=== PATIENT | female | born 1955 | race Caucasian/White ===

== ENCOUNTER 2017-03-18 08:55 | Emergency (ER) | payer MEDICAID ==
[2017-03-18 09:02] VITALS: BP 132/91; PULSE 69; RESP 16; TEMP 98.1; O2SAT 96
--- NOTE | 2017-03-18 09:27 | EDPHY ---
H & P Stated Complaint: SUBCONJUNCTIVAL HEMMORRHAGE LEFT EYE Time Seen by Provider: 03/18/17 09:14 HPI/ROS: CHIEF COMPLAINT: Left eye redness HISTORY OF PRESENT ILLNESS: This is a generally healthy 61-year-old female who presents concerned about left eye redness. She was unaware of this until her son commented on it. She has had no trauma. She denies change in vision, headache, recent illness such as upper respiratory infection. She does not have a foreign body sensation. There is no drainage from the eye. She is not having eye pain. REVIEW OF SYSTEMS: A ten point review of systems was performed and is negative with the exception of the items mentioned in the HPI. 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 - Physical Exam Exam: General Appearance: Alert. Vital signs reviewed. Blood pressure 132/91. Eyes: Visual Acuity: noted from Nurse's notes. Pupils:equal round and reactive to light EOMI Lids: no edema or swelling Skin: no proptosis, no periorbital erythema or swelling, no vesicles Conjunctivae: subconjunctival hemorrhage OS, no discharge Cornea: Fluorescein exam not performed. Slit lamp: Normal. ENT, Mouth: Normal tympanic membranes and external auditory canals. Mucous membranes are moist, no oropharyngeal erythema or edema. Neck: No lymphadenopathy. Respiratory: Lungs are clear to auscultation; no wheezes, rales, or rhonchi. Cardiovascular: Regular rate and rhythm; no murmur, rub, or gallop. Skin: Warm and dry, no rashes on exposed skin, normal color.. Neurological: Alert and oriented. Moving all four extremities easily and equally. ADAM. EOMI. Facial expression symmetric. Tongue midline. Facial sensation intact to light touch. Psychiatric: Normal affect. Constitutional: Initial Vital Signs Temperature (C) 36.7 C 03/18/17 08:59 Heart Rate 69 03/18/17 08:59 Respiratory Rate 16 03/18/17 08:59 Blood Pressure 132/91 H 03/18/17 08:59 O2 Sat (%) 96 03/18/17 08:59 Allergies/Adverse Reactions: oxycodone HCl [From Percocet] Allergy (Verified 03/18/17 09:02) Itching Home Medications: Medication Instructions Recorded NK [No Known Home Meds] 03/18/17 Medical Decision Making ED Course/Re-evaluation: 61-year-old female with subconjunctival hemorrhage. No trauma. Nothing to suggest corneal abrasion. She does not have a foreign body sensation. Nothing on exam to suggest conjunctivitis. I do not suspect acute glaucoma. She reports a history of what sounds like high blood pressure. She does have hypertension in the emergency department and will have this followed up with her primary care provider. She is not currently on any antihypertensive medications. Departure - Departure Disposition: Home, Routine, Self-Care Clinical Impression: Subconjunctival hemorrhage of left eye Condition: Good Instructions: Subconjunctival Hemorrhage (ED) Additional Instructions: Your blood pressure was high in the emergency department. It was 132/91. You should have this followed up with your primary care physician within the next month. You should be seen in the emergency department or by an eye doctor immediately if you develop eye pain, change in vision, any new or concerning symptoms. Referrals: [facility] [Other] - As per Instructions
== END 2017-03-18 09:36 | disposition home or self-care (01) ==
LOC: CED 08:55
DX: H11.32 Conjunctival hemorrhage, left eye (principal)

== ENCOUNTER 2017-05-17 18:03 | Emergency (ER) | payer MEDICAID ==
[2017-05-17 18:18] VITALS: RESP 18; TEMP 99; O2SAT 97
--- NOTE | 2017-05-17 18:41 | EDPHY ---
H & P Time Seen by Provider: 05/17/17 18:26 HPI/ROS: This patient complains of toe redness and discomfort to the lateral paronychia region of her left great toe that started after she broke the distal toenail and then tore off the remaining piece. She thinks this door flap given the paronychia region that has caused the infection. Symptoms started over the past 48 hours and she reports moderate pain to the area. There is no bleeding when she removed the remaining toenail. She has never had an issue with this toe before. She notes no exacerbating factors except for partial relief from [id number] analgesics. ROS: No fevers chills or other constitutional symptoms Integumentary: No other skin rash or redness elsewhere. 5 point ROS is otherwise negative Past Medical/Surgical History: Otherwise healthy Smoking Status: Never smoked Physical Exam: Physical Exam Vital signs are normal. General: No acute distress Lungs: No respiratory distress. Cardiac: Brisk capillary refill is intact throughout. Skin: No rash or pallor. Extremities: Atraumatic normal except for left great toe Left great toe: Patient has some mild paronychial erythema and swelling to the lateral aspect of the great toe paronychial region without fluctuance or drainage. No bony tenderness. Neuro: Alert and oriented with no sensorimotor deficits in the affected toe. Constitutional: Initial Vital Signs Temperature (C) 37.2 C 05/17/17 18:16 Heart Rate 87 05/17/17 18:16 Respiratory Rate 18 05/17/17 18:16 Blood Pressure 127/81 H 05/17/17 18:16 O2 Sat (%) 97 05/17/17 18:16 O2 Delivery Mode Room Air Allergies/Adverse Reactions: oxycodone HCl [From Percocet] Allergy (Verified 03/18/17 09:02) Itching Home Medications: Medication Instructions Recorded Cephalexin [Keflex (*)] 500 mg PO TID #21 cap 05/17/17 MDM/Departure - [facility] ED Course/Re-evaluation: This patient has paronychia without fluctuance. I recommended Keflex antibiotic and Epsom salt soaks. She understands need to return if she develops worsening despite the treatment plan - Depart Disposition: Home, Routine, Self-Care Clinical Impression: Paronychia Qualifiers: Laterality: left Qualified Code(s): L03.012 - Cellulitis of left finger Condition: Good Instructions: Paronychia (ED) Additional Instructions: Diagnosis: Paronychia-toe infection Plan: Warm Epsom salt water soaks 2 times a day or soapy water soaks if it appears dry. Keflex antibiotic Ibuprofen and Tylenol Return for any significant worsening despite the treatment plan or follow up with Podiatry for any ongoing symptoms despite the treatment Prescriptions: Cephalexin [Keflex (*)] 500 mg PO TID #21 cap Referrals: NONE *PRIMARY CARE P,. [Primary Care Provider] - As per Instructions Tom Holm DPM [Doctor of Podiatric Medicine] - As per Instructions
[2017-05-17 18:55] VITALS: BP 154/85; PULSE 85
== END 2017-05-17 18:56 | disposition home or self-care (01) ==
LOC: CED 18:03
DX: L03.012 Cellulitis of left finger (principal)

== ENCOUNTER 2017-11-01 17:16 | Emergency (ER) | payer MEDICAID ==
[2017-11-01] MEDS ORDERED: LET GEL TOPICAL 1 EA SYR TP ONE (17:31)
[2017-11-01 17:37] VITALS: BP 149/81; PULSE 88; RESP 16; TEMP 97.9; O2SAT 96
--- NOTE | 2017-11-01 18:32 | EDPHY ---
H & P Time Seen by Provider: 11/01/17 17:30 HPI/ROS: This patient complains of pain to the left foot the site of the puncture wound and possible retained foreign body. She was barefoot in her home while they were working on rebuilding a couch with wood chips on the floor. Also a glass vase broke in the area and she is not sure if she stepped on glass would or both. The family was able to remove some wood splinters from the puncture wound but she has a sense that there may still be something in the wound as she has had slight increase in her pain from 3/10 initially to 5/10 over the past 24 hr. The incident occurred 3 days ago. The pain worsens with walking and no other exacerbating or alleviating factors are noted. ROS: No fevers. No other constitutional symptoms Integumentary: No redness to the area of the wound. No discharge. Cardiovascular: No significant bleeding from the wound. 5 point ROS is otherwise negative. Past Medical/Surgical History: Otherwise healthy with immunizations up today Smoking Status: Former smoker Physical Exam: Physical Exam Vital signs are normal. General: No acute distress Cardiac: Brisk capillary refill is intact throughout. Pulses are 2+ and symmetric in the affected extremity. Extremities: Atraumatic normal except for left foot Left foot: Patient has a 4 mm wound-puncture wound to the mid plantar ft with no active bleeding and small brown foreign body evident relatively near the surface. There is no erythema. No fluctuance. No warmth to touch. No active bleeding. Skin: No rash or pallor. Neuro: Alert with no sensorimotor deficits in the affected extremity. Constitutional: Initial Vital Signs Temperature (C) 36.6 C 11/01/17 17:36 Heart Rate 88 11/01/17 17:36 Respiratory Rate 16 11/01/17 17:36 Blood Pressure 149/81 H 11/01/17 17:36 O2 Sat (%) 96 11/01/17 17:36 O2 Delivery Mode Room Air Allergies/Adverse Reactions: oxycodone HCl [From Percocet] Allergy (Verified 11/01/17 17:34) Itching Home Medications: Medication Instructions Recorded NK [No Known Home Meds] 11/01/17 MDM/Departure - MDM Diagnostics: Two view foot x-ray: Normal by my interpretation. I do not appreciate any radiopaque foreign bodies. Imaging Results: Imaging Impressions Foot X-Ray 11/01/17 17:39 Impression: No foreign body identified. Imaging: I viewed and interpreted images myself Procedures: Foreign body removal: After verbal consent placed patient in the prone position and use chlorhexidine scrub the wound after initial let analgesia with 1% plain lidocaine with epi, 27 gauge needle 1 mL injected with good effect I then used forceps to blunt dissect removed small amount of wood debris from near the entrance of the wound. I was able to obtain good exposure by simply retracting the wound edges with Jeannie forceps while using magnifying loops and using a blunt probe was able to probe the base of the wound appreciate no deeper puncture wound and no other foreign bodies. Patient tolerated this well. There were no complications. Wound was then cleaned again, bacitracin and bandage applied by our tech cording my instructions the patient was then placed and postop shoe by our tech I counseled patient regarding wound care ED Course/Re-evaluation: Our tech placed the patient in a postop shoe after the procedure as per my directions. She remained neurovascularly intact post splint application Discussion: Patient with superficial puncture wound with wood foreign body near the surface removed without evidence of cellulitis currently. I do not appreciate a evidence of deeper foreign bodies or, fracture or other complicating factors in this patient. Will treat her with ibuprofen and Tylenol analgesics and wound care. She understands the need to follow up with the retail salesman for any ongoing symptoms that persist beyond the next 5-7 days and she will return emergency department should she have any worsening of symptoms or development of redness, discharge or other concerns for infection. - Depart Disposition: Home, Routine, Self-Care Clinical Impression: Foreign body in left foot Qualifiers: Encounter type: initial encounter Qualified Code(s): S90.852A - Superficial foreign body, left foot, initial encounter Condition: Good Instructions: Puncture Wound (ED) Additional Instructions: Diagnosis: Foreign body left foot-removed Plan: Clean the wound daily with warm soapy water Wear a bandage during the day and postop shoe until your pain diminishes. Take the bandage off a night so that air can get to your foot. Ibuprofen and Tylenol for pain. Follow up with the retail salesman-email production specialist for any significant ongoing symptoms last beyond the next 5-7 days Return for redness, discharge, fevers or other concerns for infection Referrals: Radha Howard NP [Primary Care Provider] - As per Instructions Arian Schmitt DPM [Doctor of Podiatric Medicine] - As per Instructions
== END 2017-11-01 18:35 | disposition home or self-care (01) ==
LOC: CED 17:16
PROC: 0JCR0ZZ Extirpation of Matter from Left Foot Subcutaneous Tissue and Fascia, Open Approach (ICD-10-PCS; principal; 2017-11-01)
DX: S90.852A Superficial foreign body, left foot, initial encounter (principal); Z87.891 Personal history of nicotine dependence; W25.XXXA Contact with sharp glass, initial encounter
CPT/HCPCS: 73620-PO

== ENCOUNTER 2017-11-07 19:53 | Emergency (ER) | payer MEDICAID ==
[2017-11-07] MEDS ORDERED: OXYMETAZOLINE 30 ML NASAL SPRAY EACHNARE ONE (20:00)
[2017-11-07 20:02] VITALS: RESP 18; TEMP 97.9; O2SAT 95
--- NOTE | 2017-11-07 20:02 | EDPHY ---
H & P Time Seen by Provider: 11/07/17 19:56 HPI/ROS: CHIEF COMPLAINT: Nosebleed HISTORY OF PRESENT ILLNESS: The patient is a 62-year-old female who comes to the emergency department the family complaining of a nosebleed that started 20 min ago. She states it started when she is bending over looking on the couch. She has not had a fever or recent illness. She denies trauma. She does have frequent nosebleeds but usually they resolve after a minute or 2. She does not take any blood thinners. No liver or kidney disease. No headache. She does not feel lightheaded or dizzy. She also has a septal perforation from her history of working on [employer]. REVIEW OF SYSTEMS: Constitutional: denies: chills, fever, recent illness, recent injury EENTM: See HPI Respiratory: denies: cough, shortness of breath Cardiac: denies: chest pain, irregular heart rate, lightheadedness, palpitations Gastrointestinal/Abdominal: denies: abdominal pain, diarrhea, nausea, vomiting, blood streaked stools Genitourinary: denies: dysuria, frequency, hematuria, pain Musculoskeletal: denies: joint pain, muscle pain Skin: denies: lesions, rash, jaundice, bruising Neurological: denies: headache, numbness, paresthesia, tingling, dizziness, weakness Hematologic/Lymphatic: denies: blood clots, easy bleeding, easy bruising Immunologic/allergic: denies: HIV/AIDS, transplant EXAM: GENERAL: Well-appearing, well-nourished and in no acute distress. HEAD: Atraumatic, normocephalic. EYES: Pupils equal round and reactive to light, extraocular movements intact, sclera anicteric, conjunctiva are normal. ENT: Breathing firm left anterior nares. Septum with perforation. NECK: Normal range of motion, supple without lymphadenopathy or JVD. LUNGS: Breath sounds clear to auscultation bilaterally and equal. No wheezes rales or rhonchi. HEART: Regular rate and rhythm without murmurs, rubs or gallops. ABDOMEN: Soft, nontender, normoactive bowel sounds. No guarding, no rebound. No masses appreciated. BACK: No CVA tenderness, no spinal tenderness, step-offs or deformities EXTREMITIES: Normal range of motion, no pitting or edema. No clubbing or cyanosis. NEUROLOGICAL: Cranial nerves II through XII grossly intact. Normal speech, normal gait. 5/5 strength, normal movement in all extremities, normal sensation PSYCH: Normal mood, normal affect. SKIN: Warm, dry, normal turgor, no visible rashes or lesions. Source: Patient, Family Exam Limitations: No limitations - Personal History Tetanus Vaccine Date: 2009 - Medical/Surgical History Hx Asthma: No Hx Chronic Respiratory Disease: No Hx Diabetes: No Hx Cardiac Disease: No Hx Renal Disease: No Hx Cirrhosis: No Hx Alcoholism: No Hx HIV/AIDS: No Hx Splenectomy or Spleen Trauma: No Other PMH: ortho sx - Family History Significant Family History: No pertinent family hx - Social History Smoking Status: Former smoker Alcohol Use: Sober Drug Use: None Constitutional: Initial Vital Signs Temperature (C) 36.6 C 11/07/17 20:00 Heart Rate 88 11/07/17 20:00 Respiratory Rate 18 11/07/17 20:00 Blood Pressure 141/98 H 11/07/17 20:00 O2 Sat (%) 95 11/07/17 20:00 O2 Delivery Mode Room Air Allergies/Adverse Reactions: oxycodone HCl [From Percocet] Allergy (Verified 11/01/17 17:34) Itching Home Medications: Medication Instructions Recorded NK [No Known Home Meds] 11/01/17 Medical Decision Making ED Course/Re-evaluation: 9:15 p.m. the patient's bleeding has resolved with Afrin and a clamp. She has a clot to her anterior septum on the left just on the margin of her septal perforation. At this point we agreed to avoid cauterization for further rebleeding and also to avoid packing because both sides would require packing. We discussed use of Afrin and a clamp at home if needed. The patient states that she has not been using her humidifier which usually helps her not to have bloody noses. I encouraged her to use this again and possibly some Vaseline gently. We discussed indications for returning. I will refer her to ENT. Differential Diagnosis: Partial list of the Differential diagnosis considered include but were not limited to; anterior epistaxis, septal perforation and although unlikely based on the history and physical exam, I also considered posterior epistaxis, infection, trauma. I discussed these differential diagnoses and the plan with the patient as well as the usual and expected course. The patient understands that the diagnosis is provisional and that in medicine we are not always correct and that further workup is often warranted. Usual and customary warnings were given. All of the patient's questions were answered. The patient was instructed to return to the emergency department should the symptoms at all worsen or return, otherwise to followup with the physician as we discussed. - Data Points Medications Given: Discontinued Medications Oxymetazoline HCl (Afrin Nasal Hoffman) 2 sprays EACHNARE EDNOW ONE Stop: 11/07/17 20:01 Last Admin: 11/07/17 20:04 Dose: 2 sprays Departure - Departure Disposition: Home, Routine, Self-Care Clinical Impression: Acute anterior epistaxis, Nasal septal perforation Condition: Fair Instructions: Nosebleed (ED) Referrals: NONE *PRIMARY CARE P,. [Primary Care Provider] - As per Instructions Pop Dai MD [Medical Doctor] - 5-7 days, call for appt.
[2017-11-07 21:40] VITALS: BP 116/78; PULSE 73
== END 2017-11-07 21:34 | disposition home or self-care (01) ==
LOC: CED 19:53
DX: R04.0 Epistaxis (principal); J34.89 Other specified disorders of nose and nasal sinuses; Z87.891 Personal history of nicotine dependence

== ENCOUNTER 2018-03-24 20:29 | Emergency (ER) | payer MEDICAID ==
[2018-03-24 20:40] VITALS: BP 115/82
--- NOTE | 2018-03-24 20:47 | EDPHY ---
H & P Time Seen by Provider: 03/24/18 20:40 HPI/ROS: HPI Red belly button. 62-year-old female by private vehicle with . She reports she was cleaning the ER today. She reports that she got some dirt in her belly button include it with a Q-tip. She presents with complaint of a small amount of redness inside of her belly button. She denies significant pain to it. She has not had a fever. Denies any localized swelling around it. No drainage of pus. No other complaint. ROS: Constitutional: No fever, no chills. No weakness. Musculoskeletal: No myalgias or arthralgias. Skin: As above Neurological: No headache. No focal weakness or altered sensation. Past medical history: Orthopedic surgery. Social history: Nonsmoker. No alcohol. Here with . Physical Exam: General Appearance: Alert, no distress. This patient is responding to questions appropriately and in full sentences. This patient appears well- hydrated and well-nourished. Gastrointestinal: Abdomen is soft and nontender, no masses, bowel sounds normal. No focal tenderness at McBurney's point. No Macdonald sign. On examination of her umbilicus she has a very small amount of localized erythema involving the skin of the invaginated part of her umbilicus. It is not significantly tender on palpation. There is no fluctuance or evidence of abscess. No purulent drainage. It is a very small area very localized. No spreading erythema or edema. Neurological: Motor sensory function is grossly intact. Cranial nerves are normal. Gait is normal. Skin: Warm and dry, as above. Extremities are symmetrical. All joints range without pain or impingement. Psychiatric: No agitation. No depression. Database: EKG: Imaging: Procedures: Emergency department course: Vital signs reviewed and are normal. Patient's presentation is consistent with a localized contact dermatitis versus inflammatory response involving the skin of her in her umbilicus. I do not suspect infection. I discussed keeping it clean and dry. She feels comfortable going home with her and I feel she is safe for discharge. Follow-up and return to emergency department precautions were reviewed with her. All of her questions were answered. She was discharged in good condition. Differential Diagnosis: The differential diagnosis on this patient includes but is not limited to localized inflammation of umbilicus. Cellulitis, abscess unlikely. This represents a partial list of diagnoses considered. These considerations are based on history, physical exam, past history, reassessment and diagnostic testing. Smoking Status: Former smoker Constitutional: Initial Vital Signs Temperature (C) 36.8 C 03/24/18 20:37 Heart Rate 78 03/24/18 20:37 Respiratory Rate 16 03/24/18 20:37 Blood Pressure 115/82 H 03/24/18 20:37 O2 Sat (%) 94 03/24/18 20:37 O2 Delivery Mode Room Air Allergies/Adverse Reactions: oxycodone HCl [From Percocet] Allergy (Verified 11/01/17 17:34) Itching Home Medications: Medication Instructions Recorded NK [No Known Home Meds] 11/01/17 Departure - Departure Disposition: Home, Routine, Self-Care Clinical Impression: Umbilical inflammation, Localized rash Condition: Good Instructions: Acute Rash (ED) Additional Instructions: Read and follow provided instructions. Follow-up with your primary care physician in 1-2 days for re-evaluation. Keep area clean and dry. Do not rub or abrasively clean it. Use your shower head to rinse you're belly button thoroughly when showering. Return to the emergency department for worsening symptoms, swelling, pain, spreading of the redness around your belly button, fever or other serious concerns. Referrals: Radha Howard NP [Primary Care Provider] - As per Instructions
== END 2018-03-24 20:55 | disposition home or self-care (01) ==
LOC: CED 20:29
DX: L08.82 Omphalitis not of newborn (principal); R21 Rash and other nonspecific skin eruption; Z87.891 Personal history of nicotine dependence